=== PATIENT | female | born 1990 | race Two or more races ===

== ENCOUNTER 2016-07-07 12:58 | Emergency (ER) | payer OTHER ==
[2016-07-07 13:21] VITALS: BMI 47.3
[2016-07-07] MEDS ORDERED: KETOROLAC TROMETHAMINE 30 MG/1 ML VIAL IVPUSH ONE (14:22)
--- NOTE | 2016-07-07 14:27 | PDOC ---
History of Present Illness - General Chief Complaint: Pain Stated Complaint: (PCP SENT RT [facility] PAIN Time Seen by Provider: 07/07/16 13:38 History Source: Patient Exam Limitations: No Limitations - History of Present Illness Initial Comments: 07/07/16 14:23 She states was sent from private physician's office today for evaluation of severe right shoulder pain. States onset was 2 days ago, was associated with a fever and is progressively become worse. States started in her axilla but has now progressed to her all shoulder capsule and into her clavicle. Causing immobility and exquisite pain. Patient states had an episode of hydrate eczema that was infected last week to her right hand and wrist, which is a normal occurrence for her, did not require antibiotics and states resolved by itself. States onset of fevers was yesterday, and woke up today with inability to raise shoulder. Was seen by her PMD who sent her to the emergency department for further evaluation Occurred: reports: yesterday Severity: reports: moderate, severe Pain Location: reports: other (denies history of axillary abscess or hidradenitis), upper extremity (right shoulder) Method of Injury: Yes: unknown (denies trauma, exercise changes, or any injury that could've caused shoulder problem.) Associated Symptoms (Fall): headache, nausea/vomiting Past History - Travel Traveled outside of the country in the last 30 days: No Close contact w/someone who was outside of country & ill: No - Past Medical History Allergies/Adverse Reactions: Allergies Allergy/AdvReac Type Severity Reaction Status Date / Time No Known Allergies Allergy Verified 07/07/16 13:21 Home Medications: Ambulatory Orders Amoxicillin/Potassium Clav [Augmentin 875-125 Tablet] 1 each PO BID #14 tablet 07/07/16 Hydrocortisone 0.5% Cream [Hytone 0.5% Cream -] 1 applic TP TID #1 tube Naproxen [Naprosyn -] 500 mg PO BID PRN #20 tablet 07/07/16 Sulfamethoxazole/Trimethoprim [Bactrim Ds -] 1 tab PO BID #14 tablet 07/07/16 Asthma: Yes - Reproductive History (#): 1 Para: 0 - Immunization History Immunization Up to Date: Yes - Psycho/Social/Smoking Cessation Hx Anxiety: Yes Suicidal Ideation: No Smoking Status: No Smoking History: Never smoked Number of Cigarettes Smoked Daily: 0 Information on smoking cessation initiated: No Hx Alcohol Use: No Drug/Substance Use Hx: No Hx Substance Use Treatment: No Trauma Specific PMHX - Complaint Specific PMHX Back Injury: No Neck Injury: No Review of Systems - Review of Systems Able to Perform ROS?: Yes Is the patient limited Bengali proficient: Yes Constitutional: Yes: Symptoms Reported, See HPI, Malaise. No: Fever HEENTM: No: Symptoms Reported Respiratory: No: Symptoms reported : No: Symptoms Reported Musculoskeletal: Yes: Symptoms Reported, See HPI All Other Systems: Reviewed and Negative *Physical Exam - Vital Signs Last Vital Signs Temp Pulse Resp BP Pulse Ox 100.6 F H 115 H 18 130/85 97 07/07/16 13:17 07/07/16 13:17 07/07/16 13:17 07/07/16 13:07/07/16 13:17 - Physical Exam General Appearance: Yes: Appropriately Dressed, Apparent Distress, Moderate Distress, Severe Distress HEENT: positive: ELIJAH, Normal ENT Inspection, Normal Voice, TMs Normal, Pharynx Normal Neck: positive: Supple, Lymphadenopathy (R) Respiratory/Chest: positive: Lungs Clear Extremity: positive: Normal Capillary Refill, Tender, Swelling (nonfluctuant but exquisite tender swelling to right shoulder capsule, worse anterior than posterior. Range of motion is limited to approximately 20 abduction. Patient has no axillary tenderness, abscess fluctuance or evidence of abnormality), Other (neurovascular intact distal to elbow). negative: Normal Inspection, Normal Range of Motion Integumentary: positive: Warm, Pale. 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 Will obtain labs, provide Toradol for pain relief and fever relief, and obtain CAT scan of shoulder Medical Decision Making - Medical Decision Making 07/07/16 15:26 patient taken to CAT scan after finishing 1 L of IV fluid, and 30 mg of IV Toradol states shoulder feels mildly better but is complaints of a headache. Discussed case with charge nurse and will move patient to emergency department for further evaluation *DC/Admit/Observation/Transfer Diagnosis at time of Disposition: Cellulitis Qualifiers: Site of cellulitis: extremity Site of cellulitis of extremity: upper extremity Laterality: right Qualified Code(s): L03.113 - Cellulitis of right upper limb Eczema Qualifiers: Eczema type: unspecified Qualified Code(s): L30.9 - Dermatitis, unspecified - Discharge Dispostion Disposition: HOME Condition at time of disposition: Stable Admit: No - Prescriptions Prescriptions: Amoxicillin/Potassium Clav [Augmentin 875-125 Tablet] 1 each PO BID #14 tablet Sulfamethoxazole/Trimethoprim [Bactrim Ds -] 1 tab PO BID #14 tablet Hydrocortisone 0.5% Cream [Hytone 0.5% Cream -] 1 applic TP TID #1 tube Naproxen [Naprosyn -] 500 mg PO BID PRN #20 tablet PRN Reason: Pain/Fever - Referrals Referrals: Essence Conley MD [Primary Care Provider] - - Patient Instructions Printed Discharge Instructions: DI for Cellulitis -- Adult Additional Instructions: Please complete the antibiotics (augmentin, bactrim) every 12 hours for the next week. Take 500 mg naproxen every 12 hours as needed for pain/fever. Please apply a thin layer of hydrocortisone cream every 8 hours for the next week. Return to the ER in 2 days for re-checkup and skin check.
[2016-07-07] MEDS ORDERED: KETOROLAC TROMETHAMINE 30 MG/1 ML VIAL ONE ×2 (14:30→14:31)
[2016-07-07 14:34] LABS: BASOPHIL 0.4 % (0-2.0); EOSINOPHIL 0.3 % (0-4.5); MCH 24.5 pg (25.7-33.7); MEAN CELL VOLUME 76.6 fl (80-96); MEAN PLT VOLUME 7.6 fl (7.5-11.1); NEUTROPHILS 82.4 % (42.8-82.8); PLATELET COUNT 328 K/MM3 (134-434); RDW 15.6 % (11.6-15.6); WHITE BLOOD COUNT 16.2 K/mm3 (4.0-10.0)
[2016-07-07 14:37] LABS: URINE APPEARANCE CLEAR; URINE BILIRUBIN NEGATIVE (NEGATIVE); URINE BLOOD NEGATIVE (NEGATIVE); URINE COLOR YELLOW; URINE GLUCOSE (UA) NEGATIVE (NEGATIVE); URINE KETONE 2+ (NEGATIVE); URINE NITRITE NEGATIVE (NEGATIVE); URINE PROTEIN NEGATIVE (NEGATIVE); URINE UROBILINOGEN 2.0 E.U/dl E.U./dl (0.2-1.0)
[2016-07-07 14:42] LABS: URINE LEUK ESTERASE TRACE (NEGATIVE)
[2016-07-07 14:45] LABS: URINE BACTERIA RARE /hpf (NONE SEEN); URINE MUCUS RARE; URINE RBC 6 /hpf (0-3); URINE WBC 5 /hpf (3-5)
[2016-07-07 15:01] LABS: ALBUMIN 4.1 g/dl (3.4-5.0); ANION GAP 7 (8-16); CALCIUM 9.1 mg/dL (8.5-10.1); CO2 28 mmol/L (21-32); GLUCOSE,RANDOM 90 mg/dL (74-106)
[2016-07-07 15:05] LABS: ALK PHOS 69 U/L (45-117); CREATININE 0.8 mg/dL (0.55-1.02); SGOT/AST 13 U/L (15-37); SGPT/ALT 29 U/L (12-78); TOT PROT 8.4 g/dl (6.4-8.2)
[2016-07-07] MEDS ORDERED: AMOX TR/POT CLAV 875MG/125MG TABLETS (FP) PO ONE (17:35)
[2016-07-07] MEDS ORDERED: AMOX TR/POT CLAV 875MG/125MG TABLETS (FP) ONE (17:39)
--- NOTE | 2016-07-07 17:43 | PDOC ---
*Physical Exam - Vital Signs Last Vital Signs Temp Pulse Resp BP Pulse Ox 100.6 F H 115 H 18 130/85 97 07/07/16 13:17 07/07/16 13:17 07/07/16 13:17 07/07/16 13:17 07/07/16 13:17 ED Treatment Course - LABORATORY CBC & Chemistry Diagram: 07/07/16 13:30 07/07/16 13:30 - ADDITIONAL ORDERS Additional order review: Laboratory Results 07/07/16 07/07/16 13:30 13:30 Sodium 135 L Potassium 3.9 Chloride 100 Carbon Dioxide 28 Anion Gap 7 L BUN 9 D Creatinine 0.8 Creat Clearance w eGFR > 60 Random Glucose 90 Calcium 9.1 Total Bilirubin 1.0 AST 13 L D ALT 29 D Alkaline Phosphatase 69 D Total Protein 8.4 H D Albumin 4.1 D Urine Color Yellow Urine Appearance Clear Urine pH 6.0 Ur Specific Novice 1.020 Urine Protein Negative Urine Glucose (UA) Negative Urine Ketones 2+ H Urine Blood Negative Urine Nitrite Negative Urine Bilirubin Negative Urine Urobilinogen 2.0 e.u/dl H Ur Leukocyte Esterase Trace H Urine RBC 6 Urine WBC 5 Ur Epithelial Cells Rare Urine Bacteria Rare Urine Mucus Rare Urine HCG, Qual Negative 07/07/16 13:30 RBC 4.96 D MCV 76.6 L MCHC 32.0 RDW 15.6 MPV 7.6 D Neutrophils % 82.4 D Lymphocytes % 10.9 D Monocytes % 6.0 Eosinophils % 0.3 D Basophils % 0.4 - Medications Given in the ED: ED Medications Discontinued Medications Generic Name Dose Route Start Last Admin Trade Name Freq PRN Reason Stop Dose Admin Ketorolac Tromethamine 30 mg 07/07/16 14:22 07/07/16 14:36 Toradol Injection - IVPUSH 07/07/16 14:23 30 mg ONCE ONE Administration Medical Decision Making - Medical Decision Making 07/07/16 17:38 This patient was signed out to me. This is a 26 year old female with history of obesity, eczema, asthma presents with R arm pain and fever/chills x 3 days. Pt denies any injuries to the area. Was worked up as potential infection. CBC, BMP 07/07/16 13:30 07/07/16 13:30 CMP Sodium 135 mmol/L (136-145) L 07/07/16 13:30 Potassium 3.9 mmol/L (3.5-5.1) 07/07/16 13:30 Chloride 100 mmol/L (98-107) 07/07/16 13:30 Carbon Dioxide 28 mmol/L (21-32) 07/07/16 13:30 Anion Gap 7 (8-16) L 07/07/16 13:30 BUN 9 mg/dL (7-18) D 07/07/16 13:30 Creatinine 0.8 mg/dL (0.55-1.02) 07/07/16 13:30 Creat Clearance w eGFR > 60 (>60) 07/07/16 13:30 Random Glucose 90 mg/dL (74-106) 07/07/16 13:30 Calcium 9.1 mg/dL (8.5-10.1) 07/07/16 13:30 Total Bilirubin 1.0 mg/dL (0.2-1.0) 07/07/16 13:30 AST 13 U/L (15-37) L D 07/07/16 13:30 ALT 29 U/L (12-78) D 07/07/16 13:30 Alkaline Phosphatase 69 U/L (45-117) D 07/07/16 13:30 Total Protein 8.4 g/dl (6.4-8.2) H D 07/07/16 13:30 Albumin 4.1 g/dl (3.4-5.0) D 07/07/16 13:30 Labs reviewed and demonstrate WBC 16.2. The CT scan demonstrates edema and enlarged lymph nodes, likely consistent with likely underlying cellulitis. The patient reports that her eczema has worsened in her right hand and has been scratching. I suspect that this is likely the source. The pt is noted to have a fever here. However, the patient is not toxic appearing. I had examined the right axilla and there is NO palpable fluctuance or induration. The patient is a very reasonable patient to intiate oral antibiotics (augmentin, bactrim) and have her follow up to the ED in 2 days for wound check and check up. Will prescribe hydrocortisone cream for the eczema. Supportive care and return precautions given. Patient verbalizes understanding and agrees with plan. *DC/Admit/Observation/Transfer Diagnosis at time of Disposition: Cellulitis Qualifiers: Site of cellulitis: extremity Site of cellulitis of extremity: upper extremity Laterality: right Qualified Code(s): L03.113 - Cellulitis of right upper limb Eczema Qualifiers: Eczema type: unspecified Qualified Code(s): L30.9 - Dermatitis, unspecified - Discharge Dispostion Disposition: HOME Condition at time of disposition: Stable Admit: No - Prescriptions Prescriptions: Amoxicillin/Potassium Clav [Augmentin 875-125 Tablet] 1 each PO BID #14 tablet Hydrocortisone 0.5% Cream [Hytone 0.5% Cream -] 1 applic TP TID #1 tube Naproxen [Naprosyn -] 500 mg PO BID PRN #20 tablet PRN Reason: Pain/Fever - Referrals Referrals: Essence Conley MD [Primary Care Provider] - - Patient Instructions Printed Discharge Instructions: DI for Cellulitis -- Adult Additional Instructions: Please complete the antibiotics (augmentin, bactrim) every 12 hours for the next week. Take 500 mg naproxen every 12 hours as needed for pain/fever. Please apply a thin layer of hydrocortisone cream every 8 hours for the next week. Return to the ER in 2 days for re-checkup and skin check. - Post Discharge Activity
[2016-07-07] MEDS ORDERED: SULFAMETHOXAZOLE/TRIMETHOPRIM 800MG/160MG D.S. TABLET PO ONE (18:18)
[2016-07-07 18:29] VITALS: BP 140/84; PULSE 90; TEMP 98.9
[2016-07-07] MEDS ORDERED: SULFAMETHOXAZOLE/TRIMETHOPRIM 800MG/160MG D.S. TABLET ONE (18:32)
== END 2016-07-07 18:30 | disposition home or self-care (01) ==
LOC: JER 12:58 → JERFT 12:58 → JER 18:30
PROC: 3E0333Z Introduction of Anti-inflammatory into Peripheral Vein, Percutaneous Approach (ICD-10-PCS; principal; 2016-07-07)
DX: L03.113 Cellulitis of right upper limb (principal); L30.9 Dermatitis, unspecified
CPT/HCPCS: 36415; 73200-TC-RT; 80053; 81003; 81015; 84703; 85025; 87040; 96374; 99283-25